=== PATIENT | male | born 1950 | race African-American/Black ===

== ENCOUNTER 2018-04-30 16:22 | Inpatient (IN) | payer OTHER ==
[~2018-04-30] VITALS: Ht 175.3 cm; Wt 80.9 kg
[2018-04-30] MEDS ORDERED: ASPirin 81 mg TAB PO ONE (16:45)
[2018-04-30] MEDS ORDERED: NITROGLYCERIN 0.4 MG SL TAB SL ONE (17:00)
[2018-04-30 17:15] LABS: Eosinophils # (auto) 0.1 uL; Hemoglobin 12.3 g/dL (13.5-17.5); Lymphocytes # (auto) 1.4 uL; Monocytes # (auto) 0.6 uL; Neutrophils # (auto) 2.2 uL; White Blood Cell 4.4 10^3/uL (4.4-10.8)
[2018-04-30 17:16] LABS: Basophils # (auto) 0.1 uL; Basophils % (auto) 1.4 % (0.0-2.0); Eosinophils % (auto) 3.3 % (0.0-7.0); Hematocrit 39.4 % (41.0-53.0); Lymphocytes % (auto) 32.6 % (10.0-50.0); Mean Corpuscular Hemoglobin 25.4 pg (28.0-32.0); Mean Corpuscular Hgb Conc. 31.1 g/dL (32.0-36.0); Mean Corpuscular Volume 81.7 fL (80.0-100.0); Neutrophils % (auto) 48.7 % (37.0-80.0); Nucleated Red Blood Cells % 0.4 %; Platelet Count (auto) 242 10^3/uL (140-450); Red Blood Cells 4.82 10^6/uL (4.5-5.90); Red Cell Distribution Width 15.5 % (11.8-14.3)
[2018-04-30 17:31] LABS: Alanine Aminotransferase 67 U/L (16-61); Albumin 3.3 g/dL (3.4-5.0); Anion Gap 9 (5-15); Aspartate Aminotransferase 42 U/L (15-37); BUN/Creatinine Ratio 8.9; Blood Urea Nitrogen 11 mg/dL (7-18); Calcium 8.6 mg/dL (8.5-10.1); Carbon Dioxide 27 mmol/L (21-32); Chloride 108 mmol/L (98-107); GFR African American 75 mL/min; GFR Non-African American 62 mL/min; Glucose 84 mg/dL (74-106); Potassium 3.8 mmol/L (3.5-5.1); Sodium 144 mmol/L (136-145)
[2018-04-30 17:35] LABS: Alkaline Phosphatase 52 U/L (45-117); Bilirubin, Total 0.5 mg/dL (0.2-1.0)
[2018-04-30] MEDS ORDERED: HYDROcodone-ACET 5/325MG TAB PO PRN (18:15)
[2018-04-30] MEDS ORDERED: TEMAZEPAM 15 MG CAP PO PRN (18:15)
[2018-04-30] MEDS ORDERED: PROMETHAZINE HCL 25 MG/ML 1ML IV PRN (18:15)
[2018-04-30] MEDS ORDERED: NITROGLYCERIN 0.4 MG SL TAB SL PRN (18:15)
[2018-04-30] MEDS ORDERED: LACTULOSE 20Gm/30ML SOLN PO PRN (18:15)
[2018-04-30] MEDS ORDERED: LORazepam 0.5 MG TAB PO PRN (18:15)
[2018-04-30] MEDS ORDERED: MORPHINE SULFATE 10 MG/ML INJ 1ML SDV IV PRN ×2 (18:15)
[2018-04-30] MEDS ORDERED: ACETAMINOPHEN 500 MG TAB PO PRN (18:15)
[2018-04-30] MEDS ORDERED: AML5T PO (21:22)
[2018-04-30] MEDS ORDERED: TERA1CAP33 PO (21:22)
[2018-04-30] MEDS ORDERED: DABI75CA4 PO (21:22)
[2018-04-30] MEDS ORDERED: ATOR10TA PO (21:22)
[2018-04-30 22:00] VITALS: BP 133/66
[2018-04-30] MEDS ORDERED: ATORVASTATIN 20 MG TAB PO SCH (22:00)
[2018-04-30] MEDS: SODIUM CHLORIDE 0.9% 1,000 ML IV SCH (22:30)
[2018-05-01 02:43] LABS: Urine WBC None Seen /hpf (0 - 3)
[2018-05-01 03:04] LABS: Urine Bacteria NONE SEEN /hpf (None Seen); Urine Blood Negative /uL (Negative); Urine Specific Gravity 1.013 (1.001-1.035)
[2018-05-01 03:15] LABS: Alcohol, Urine < 3.0 mg/dL (0-5); Amphetamine Screen, Urine NEGATIVE (NEGATIVE); Barbiturate Scree,Urine NEGATIVE (NEGATIVE); Benzodiazephine Screen, Urine NEGATIVE (NEGATIVE); Cannabinoid Screen, Urine POSITIVE (NEGATIVE); Cocaine Screen, Urine NEGATIVE (NEGATIVE); Opiate Scree,Urine NEGATIVE (NEGATIVE); Phencyclidine Screen, Urine NEGATIVE (NEGATIVE)
[2018-05-01 05:00] VITALS: BP 116/59
[2018-05-01 06:54] LABS: Cholesterol 84 mg/dL (< 200); HDL Cholesterol 41 mg/dL (40-59); LDL Cholesterol 45 mg/dL (< 100); Triglycerides 66 mg/dL (< 150)
[2018-05-01 09:00] VITALS: BP 111/63
[2018-05-01] MEDS: SODIUM CHLORIDE 0.9% 1,000 ML IV SCH (09:54)
[2018-05-01] MEDS ORDERED: ENOXAPARIN SOD 40 MG/0.4 ML SYRINGE SC SCH (10:00)
[2018-05-01] MEDS ORDERED: ASPirin 81 mg TAB PO SCH (10:00)
[2018-05-01] MEDS ORDERED: ENALAPRIL MALEATE 2.5 MG TAB PO SCH (10:00)
[2018-05-01] MEDS ORDERED: PANTOPRAZOLE 40 MG TAB PO SCH (10:00)
[2018-05-01] MEDS ORDERED: NITROGLYCERIN 0.2MG/HR TOPICAL PATCH TD SCH (10:00)
[2018-05-01 13:00] VITALS: BP 114/75
[2018-05-01 16:00] VITALS: BP 114/75
[2018-05-01 17:00] VITALS: BP 122/69
== END 2018-05-01 19:09 | disposition short-term general hospital (02) | DRG 313 ==
LOC: EDBD 16:22 → ER 16:22 → TELE 16:23 → TELE-WESTW 20:52
PROVIDERS: ADMIT Internal Medicine; ATTEND Family Medicine
DX: R07.89 Other chest pain (principal); C90.00 Multiple myeloma not having achieved remission; E78.00 Pure hypercholesterolemia, unspecified; E78.5 Hyperlipidemia, unspecified; I10 Essential (primary) hypertension; R00.1 Bradycardia, unspecified; Z86.711 Personal history of pulmonary embolism
CPT/HCPCS: 36415; 71045; 80053; 80061; 80307; 81001; 82550; 83880; 84443; 84484; 85025; 85379; 85652; 86141; 93005; 93971; 96361; 96372; 96374